=== PATIENT | male | born 1980 | race Hispanic/Latino ===

== ENCOUNTER 2020-01-28 22:52 | Emergency (ER) | payer SELFPAY ==
[~2020-01-28] VITALS: Ht 177.8 cm; Wt 99.8 kg
[2020-01-28] MEDS ORDERED: KETOROLAC TROMETHAMINE 30 MG/ML VIAL IV STA (23:14)
[2020-01-28] MEDS ORDERED: KETOROLAC TROMETHAMINE 60 MG/2 ML VIAL IM ONE (23:15)
--- NOTE | 2020-01-28 23:22 | Emergency Department Note ---
History of Present Illnes History of Present Illness Chief Complaint: Chest Pain History of Present Illness This is a 39 year old male C/O LT SIDED CHEST PAIN RADIATING TO LT ARM INTERMITTENTLY X2 MONTHS BUT WORSENING FOR THE PAST WEEK; PTIS REPRODUCIBLE ON PALPATION; WORSENS WHEN EXTENDING LT ARM; DEEP BREATHS CAUSE PAIN WELL; REPORTS PAIN WORSENS WHEN EATING; PT REPORTS BEING A BURK AND LIFTS HEAVY MATERIAL; NAD NOTED AT THIS TIME; . Historian: Patient Arrival Mode: HFD Onset (how long ago): month(s) (2) Location: LEFT UPPER CHEST Quality: PAIN Radiation: Reports other (LEFT SHOULDER) Severity: moderate Onset quality: gradual Duration (how long): month(s) (2) Timing of current episode: intermittent Progression: worsening Chronicity: recurrent Relieving factors: none Exacerbating factors: movement, other (INSPIRATION) Associated symptoms: Reports denies other symptoms Treatments prior to arrival: none Past Medical/Family History Physician Review I have reviewed the patient's past medical and family history. Any updates have been documented here. Past Medical History Recent Fever: No Clinical Suspicion of Infectio: No New/Unexplained Change in Ment: No Past Medical History: None Past Surgical History: None Social History Smoking Cessation: Never Smoker Alcohol Use: Occasional Any Illegal Drug Use: No Review of Systems Review of Systems Constitutional: Reports no symptoms EENTM: Reports no symptoms Cardiovascular: Reports as per HPI Respiratory: Reports no symptoms Gastrointestinal: Reports no symptoms Genitourinary: Reports no symptoms Musculoskeletal: Reports no symptoms Integumentary: Reports no symptoms Neurological: Reports no symptoms Psychological: Reports no symptoms Endocrine: Reports no symptoms Hematological/Lymphatic: Reports no symptoms Physical Exam Related Data Allergies: Coded Allergies: No Known Allergies (Unverified , 01/28/20) Triage Vital Signs Vital Signs Date Time Temp Pulse Resp B/P (MAP) Pulse Ox O2 Delivery O2 Flow Rate FiO2 01/28/20 23:06 99.7 87 18 140/97 99 Room Air Vital signs reviewed: Yes Physical Exam CONSTITUTIONAL Constitutional: Present well-developed, Present well-nourished; Absent obese, Absent morbidly obese, Absent cachectic, Absent diaphoretic, Absent distressed, Absent ill appearing, Absent other HENT HENT: Present normocephalic, Present atraumatic, Present oropharynx clear/moist, Present nose normal HENT L/R: Present left ext ear normal, Present right ext ear normal EYES Eyes: Reports PERRL, Reports conjunctivae normal NECK Neck: Present ROM normal PULMONARY Pulmonary: Present effort normal, Present breath sounds normal CARDIOVASCULAR Cardiovascular: Present regular rhythm, Present heart sounds normal, Present capillary refill normal, Present normal rate GASTROINTESTINAL Abdominal: Present soft, Present nontender, Present bowel sounds normal GENITOURINARY Genitourinary: Present exam deferred SKIN Skin: Present warm, Present dry MUSCULOSKELETAL PAIN TO LEFT UPPER CHEST THAT IS REPRODUCIBLE WITH PALPATION, BREATHING AND MOVEMENT OF LEFT ARM. NEUROLOGICAL Neurological: Present alert, Present oriented x 3, Present no gross motor or sensory deficits PSYCHOLOGICAL Psychological: Present mood/affect normal, Present judgement normal Results Laboratory Laboratory Laboratory Tests Test 01/28/20 23:22 White Blood Count 7.58 x10e3/uL (4.8-10.8) Red Blood Count 4.60 x10e6/uL (4.3-5.7) Hemoglobin 14.3 g/dL (14.0-18.0) Hematocrit 41.8 % (38.2-49.6) Mean Corpuscular Volume 90.9 fL (81-99) Mean Corpuscular Hemoglobin 31.1 pg (28-32) Mean Corpuscular Hemoglobin Concent 34.2 g/dL (31-35) Red Cell Distribution Width 12.5 % (11.7-14.4) Platelet Count 221 x10e3/uL (140-360) Neutrophils (%) (Auto) 63.2 % (38.7-80.0) Lymphocytes (%) (Auto) 28.6 % (18.0-39.1) Monocytes (%) (Auto) 6.7 % (4.4-11.3) Eosinophils (%) (Auto) 1.1 % (0.0-6.0) Basophils (%) (Auto) 0.3 % (0.0-1.0) Neutrophils # (Auto) 4.8 (2.1-6.9) Lymphocytes # (Auto) 2.2 (1.0-3.2) Monocytes # (Auto) 0.5 (0.2-0.8) Eosinophils # (Auto) 0.1 (0.0-0.4) Basophils # (Auto) 0.0 (0.0-0.1) Absolute Immature Granulocyte (auto 0.01 x10e3/uL (0-0.1) D-Dimer Quantitative (PE/DVT) 880 ng/mL (0-400) Sodium Level 138 mmol/L (136-145) Potassium Level 3.3 mmol/L (3.5-5.1) Chloride Level 104 mmol/L (98-107) Carbon Dioxide Level 22 mmol/L (22-29) Anion Gap 15.3 mmol/L (8-16) Blood Urea Nitrogen 12 mg/dL (7-26) Creatinine 0.88 mg/dL (0.72-1.25) Estimat Glomerular Filtration Rate > 60 ML/MIN (60-) BUN/Creatinine Ratio 14 (6-25) Glucose Level 127 mg/dL (74-118) Calcium Level 9.5 mg/dL (8.4-10.2) Creatine Kinase 503 IU/L (30-200) Creatine Kinase MB 2.10 ng/mL (0-5.0) Troponin I < 0.001 ng/mL (0-0.300) Lipase 20 U/L (8-78) Lab results reviewed: Yes Imaging Imaging results reviewed: Yes Impressions I SPOKE WITH DR EL CT CHEST PE PROTOCOL NO PE, FINDINGS OF BRONCHITIS, NO GROUND GLASS OPACITIES Procedures 12 Lead ECG Interpretation ECG Interpretation : ECG: ECG 1 [employer] Operations Specialist: Interpreted by ED physician Date: Jan 28, 2020 Time: 23:16 Rhythm: sinus rhythm Rate: normal BPM: 98 QRS axis: normal ST segments normal: Yes T waves normal: No T waves flattening: all Other findings: no other findings Clinical Impression: non-specific ECG Assessment & Plan Medical Decision Making MDM PT WITH REPRODUCIBLE LEFT UPPER CHEST PAIN CBC,CMP, CARDIAC ENZYMES, D-DIMER, CXR, LIPASE, EKG ORDERED TO EVAL FOR MYOCARDIAL INFARCTION, ELECTROLYTE ABNORMALITY, PANCREATITIS, PULMONARY EMBOLISM, TORADOL 30 MG IV ORDERED D-DIMER POSITIVE, CT CHEST PE PROTOCOL ORDERED TO EVAL FOR PULMONARY EMBOLISM PT DISCHARGED WITH ZPAK, NAPROXEN 500 MG PO BID #[id number] FLEXERIL 10 MG I -0 Q 8 HOURS PRN MUSCLE SPASM #15 Reassessment Reassessment time: 02:23 Reassessment CHEST PAIN ALMOST RESOLVED AFTER RECEIVING TORADOL. I REVIEWED LABS AND RADIOLOGY RESULTS WITH PT Assessment & Plan Final Impression: (1) Acute bronchitis (2) Chest wall pain Depart Disposition: HOME, SELF-CARE Last Vital Signs Date Time Temp Pulse Resp B/P (MAP) Pulse Ox O2 Delivery O2 Flow Rate FiO2 01/28/20 23:06 99.7 87 18 140/97 99 Room Air Medications in the ED Ketorolac Tromethamine 60 mg ONCE ONCE IM ; Start 01/28/20 at 23:15; Stop 01/28/20 at 23:15; Status DC Ketorolac Tromethamine 30 mg ONCE STAT IV ; Start 01/28/20 at 23:14; Stop 01/28/20 at 23:15; Status UNV TEODORA GONZALEZ MD Jan 28, 2020 23:22
[2020-01-28 23:43] LABS: BASOPHILS % 0.3 % (0.0-1.0); EOSINOPHILS # (AUTO) 0.1 (0.0-0.4); EOSINOPHILS % 1.1 % (0.0-6.0); HEMATOCRIT 41.8 % (38.2-49.6); HEMOGLOBIN 14.3 g/dL (14.0-18.0); LYMPHOCYTES # (AUTO) 2.2 (1.0-3.2); LYMPHOCYTES % 28.6 % (18.0-39.1); MEAN CORPUSCULAR HEMOGLOBIN 31.1 pg (28-32); MEAN CORPUSCULAR HGB CONC 34.2 g/dL (31-35); MEAN CORPUSCULAR VOLUME 90.9 fL (81-99); MONOCYTES # (AUTO) 0.5 (0.2-0.8); MONOCYTES % 6.7 % (4.4-11.3); NEUTROPHILS # (AUTO) 4.8 (2.1-6.9); NEUTROPHILS % 63.2 % (38.7-80.0); PLATELET COUNT 221 x10e3/uL (140-360); RED CELL DISTRIBUTION WIDTH 12.5 % (11.7-14.4)
[2020-01-29 00:18] LABS: ANION GAP 15.3 mmol/L (8-16); BLOOD UREA NITROGEN 12 mg/dL (7-26); BUN/CREATININE RATIO 14 (6-25); CALCIUM 9.5 mg/dL (8.4-10.2); CARBON DIOXIDE 22 mmol/L (22-29); CHLORIDE 104 mmol/L (98-107); CREATINE KINASE 503 IU/L (30-200); CREATININE, SERUM 0.88 mg/dL (0.72-1.25); EST GLOMERULAR FILTRATION RATE > 60 ML/MIN (60-); GLUCOSE 127 mg/dL (74-118); POTASSIUM 3.3 mmol/L (3.5-5.1); SODIUM 138 mmol/L (136-145)
--- NOTE | 2020-01-29 00:41 | Diagnostic Imaging Report ---
EXAMINATION: CHEST SINGLE (PORTABLE) INDICATION: Chest pain COMPARISON: FINDINGS: TUBES and LINES: None. LUNGS: Hyperinflated lungs. Subtle bilateral lower lung haziness No consolidations. PLEURA: No pleural effusion or pneumothorax. HEART AND MEDIASTINUM: The cardiomediastinal silhouette is unremarkable. BONES AND SOFT TISSUES: No acute osseous lesion. Soft tissues are unremarkable. UPPER ABDOMEN: No free air under the diaphragm. IMPRESSION: Limited sensitivity of lung field evaluation in the due to portable AP technique. Subtle bilateral lower lung haziness can be due to extrathoracic soft tissue attenuation although scarring/atelectasis or pneumonia are considerations. Signed by: Nicola Plascencia DO on 01/29/2020 12:38 AM
[2020-01-29] MEDS ORDERED: SODIUM CHLORIDE 0.9% 50ML 50 ML ONE (01:39)
[2020-01-29] MEDS ORDERED: IOPAMIDOL 370 MG/ML 200 ML INFUS..BTL INJ ONE (01:39)
--- NOTE | 2020-01-29 02:30 | Diagnostic Imaging Report ---
EXAM: CT Chest WITH contrast 01/29/2020 1:42 AM INDICATION: Positive d-dimer, left-sided chest pain COMPARISON: Same-day chest x-ray TECHNIQUE: Chest was scanned utilizing a multidetector helical scanner from the lung apex through the level of the diaphragm after administration of IV contrast. Thin section reconstructions were obtained with special concentration on the pulmonary arteries. Coronal and sagittal reformations were obtained. Pulmonary embolism protocol was performed. IV CONTRAST: 100 mL of Omnipaque 300 COMPLICATIONS: None RADIATION DOSE: Total DLP: 518 mGy*cm Estimated effective dose: (DLP x 0.014 x size factor) mSv CTDIvol has been reviewed. It is below the limits set by the Radiation Protocol Committee (RPC). Dose modulation, iterative reconstruction, and/or weight based adjustment of the mA/kV was utilized to reduce the radiation dose to as low as reasonably achievable. FINDINGS: LINES/ TUBES: None. LUNGS AND AIRWAYS: Lingular tip scarring/atelectasis. Small right lower lobe posterobasilar bleb. Bilateral central to mid bronchial wall thickening. PLEURA: The pleural spaces are clear. HEART AND MEDIASTINUM: The thyroid gland is normal. No mediastinal, hilar or axillary lymphadenopathy. The heart is normal in size. There is no pericardial effusion. UPPER ABDOMEN: Hypodense liver. BONES: There are degenerative changes in the spine. SOFT TISSUES: Unremarkable. IMPRESSION: No pulmonary embolus. Bronchitis. Hepatic steatosis. Signed by: Nicola Plascencia DO on 01/29/2020 2:27 AM
== END 2020-01-29 02:51 | disposition home or self-care (01) ==
LOC: ER 23:15
DX: J20.9 Acute bronchitis, unspecified (principal); R07.89 Other chest pain; X50.0XXA Overexertion from strenuous movement or load, initial encounter; Y99.0 Civilian activity done for income or pay
CPT/HCPCS: 36415; 71045; 71260; 80048; 82550; 82553; 83690; 84484; 85025; 85379; 93005; 99284; J1885; Q9967